=== PATIENT | female | born 1955 | race Caucasian/White ===

== ENCOUNTER 2021-02-15 09:00 | Day surgery (SDC) | payer OTHER ==
[~2021-02-15] VITALS: Ht 160 cm; Wt 114.7 kg
[~2021-02-15 09:00] MED LIST: AMOCLA875 PO; CELEXA40 M1 PO; CITA20 PO; EUTHYROX125 MCG PO; FURO20 PO; GABA100 PO; LEVSOD150 PO; MOBIC15 MG PO; ROPI1 PO; TRAM50 PO; TRAMADOL 300 MG PO; TRAZ50 PO
[2021-02-15] MEDS ORDERED: CITA20 (09:18)
--- NOTE | 2021-02-15 09:35 | NUR ---
02/15/21 0935 Ashley Cleary 1 TRY RIGHT HAND BLEW 2 TRY RIGHT FORE ARM NO FLASH
== END 2021-02-15 10:52 | disposition home or self-care (01) ==
LOC: ORSCSDS 09:00
PROVIDERS: Internal Medicine Gastroenterology
PROC: 0DBH8ZX Excision of Cecum, Via Natural or Artificial Opening Endoscopic, Diagnostic (ICD-10-PCS; principal; 2021-02-15 10:00)
PROC: 0DBL8ZX Excision of Transverse Colon, Via Natural or Artificial Opening Endoscopic, Diagnostic (ICD-10-PCS; principal; 2021-02-15 10:00)
DX: R19.4 Change in bowel habit (principal); Z86.010 Personal history of colon polyps; D12.0 Benign neoplasm of cecum; D12.3 Benign neoplasm of transverse colon; K57.30 Diverticulosis of large intestine without perforation or abscess without bleeding; K64.8 Other hemorrhoids; E03.9 Hypothyroidism, unspecified; F32.9 Major depressive disorder, single episode, unspecified; E66.01 Morbid (severe) obesity due to excess calories; Z68.41 Body mass index [BMI] 40.0-44.9, adult; Z79.899 Other long term (current) drug therapy
CPT/HCPCS: 88305; J2704; J7120

== ENCOUNTER → 2022-04-16 | Outpatient (CLI) | payer OTHER ==
[~2022-04-16] MED LIST changes: +CITA20
[2022-04-16 11:04] LABS: Bacteria Not Seen /hpf; Red Blood Cells, Urine Not Seen /hpf (0-2); Squamous Epithelial Cells Mod /hpf (Few); White Blood Cells, Urine Not Seen /hpf (0-5)
== END | disposition home or self-care (01) ==
LOC: LAB SHORT 10:51 → LAB 10:51
PROVIDERS: Physician Assistant
DX: R30.9 Painful micturition, unspecified (principal)
CPT/HCPCS: 81015; 87077; 87086; 87186